=== PATIENT | female | born 1955 | race Two or more races ===

== ENCOUNTER 2017-10-17 13:07 | Outpatient (CLI) | payer OTHER ==
[2017-10-17] MEDS ORDERED: IOHEXOL-350 100 ML VIAL IV ONE (13:36)
== END 2017-10-17 23:59 | disposition home or self-care (01) ==
LOC: CT 13:07
PROVIDERS: ATTEND Internal Medicine Interventional Cardiology
DX: M47.894 Other spondylosis, thoracic region (principal); K76.89 Other specified diseases of liver; J98.11 Atelectasis; I70.0 Atherosclerosis of aorta
CPT/HCPCS: 75574; Q9967; Z7610